=== PATIENT | female | born 1990 | race Caucasian/White ===

== ENCOUNTER 2018-07-09 13:55 | Emergency (ER) | payer SELFPAY ==
[2018-07-09] MEDS ORDERED: PARO-243 PO (14:00)
[2018-07-09 14:01] VITALS: BP 117/84
--- NOTE | 2018-07-09 14:04 | ER Report ---
History and Physical Time Seen By MD: 14:04 Hx. of Stated Complaint: CLosed R thumb in van. Small lacerations to anterior and dorsal sides of thenar prominence, bleeding controlled. Swelling to thenar prominence. PMS intact distal. HPI/ROS CHIEF COMPLAINT: Crush injury to right thumb, laceration HISTORY OF PRESENT ILLNESS: 27-year-old female patient presents to emergency room with complaint of crush injury to right thumb and laceration. Patient states that she was closing the band or and cut her thumb in the door. Patient states she does have some pain to the thumb. She states she has not taken any medication for this. She denies any fevers or chills. She denies having any numbness or tingling to her thumb. Patient did apply pressure prior to coming to the emergency room. She states she is up-to-date on her tetanus shot. Allergies: Coded Allergies: No Known Drug Allergies (Unverified , 07/09/18) Home Meds Reported Medications Paroxetine Hcl (PAXIL) 20 Mg Tablet, 20 MG PO QDAY, TAB 07/09/18 Past Medical/Surgical History Patient denies any pertinent medical or surgical history. Reviewed Nurses Notes: Yes Constitutional Vital Sign - Last 24 Hours 07/09/18 14:01 Temp 98.5 Pulse 82 Resp 16 B/P (MAP) 117/84 Pulse Ox 95 O2 Delivery Room Air Physical Exam General appearance: Alert no distress. Respiratory: Chest is non tender, lungs are clear to auscultation. Cardiac: Regular rate and rhythm. Skin: Patient has a 0.5cm laceration to the dorsal aspect of the right thumb, she does have a small abrasion to the palmar aspect of the right thumb. DIFFERENTIAL DIAGNOSIS: After history and physical exam differential diagnosis was considered for laceration, fracture, contusion. Medical Decision Making EKG/Imaging Imaging INDICATION: smashed finger in car door. DATE: 07/09/2018 2:58 PM. TECHNIQUE: FINGER RIGHT THUMB COMPARISON: None FINDINGS: Normal alignment. No fracture or dislocation. No erosions or significant degenerative findings. IMPRESSION: No acute osseous abnormality. Report Dictated By: Eugenia Bennett MD at 07/09/2018 2:58 PM Report E-Signed By: Eugenia Bennett MD at 07/09/2018 3:00 PM ED Course/Re-evaluation ED Course Patient is admitted and examined, history and physical were obtained. Differential diagnoses were considered. On examination lungs are clear, heart is regular. Patient does have a 0.5 cm laceration to the dorsal aspect of the right thumb. There was anesthetized, cleaned and repaired as described below. Patient also had an abrasion to the palmar aspect of the right thumb. The excess skin was removed. The area was cleaned up and covered with a Band-Aid. X-rays of the right thumb were done which were negative for any fractures. I discussed results with patient and her family. We will go ahead and discharge him home at this time. They're to follow-up with their primary care provider in 7-10 days to have sutures removed. Patient verbalized understanding and agreement with plan. Procedure: Laceration repair. Verbal consent was obtained from the patient. The 0.5 cm laceration on the dorsal aspect of the right thumb was anesthetized in the usual fashion. The wound was scrubbed, draped and explored to its base with a gloved finger. There were no deep structures involved. No tendon injury was identified. The wound was repaired with 2 simple interrupted sutures using 5-0 Prolene material. The wound repair was simple. The procedure was performed by myself. Decision to Disposition Date: Jul 09, 2018 Decision to Disposition Time: 14:56 Depart Departure Latest Vital Signs Vital Signs Date Time Temp Pulse Resp B/P (MAP) Pulse Ox O2 Delivery O2 Flow Rate FiO2 07/09/18 14:01 98.5 82 16 117/84 95 Room Air Impression: Primary Impression: Finger laceration Additional Impression: Crushing injury of right thumb Condition: Improved Disposition: HOME OR SELF-CARE Patient Instructions: Finger Laceration (ED) Additional Instructions: Keep wound dry for 48 hours. Follow up with your primary care provider in the next 7-10 days to have sutures removed. Monitor for signs of infection; redness, swelling, heat, discharge, increasing pain or red streaking. Take Tylenol or Ibuprofen as needed for pain. Return to the ER with any concerns. You may change dressing as needed. Problem Qualifiers Primary Impression: Finger laceration Encounter type: initial encounter Finger: thumb Damage to nail status: without damage Foreign body presence: without foreign body Laterality: right Qualified Codes: S61.011A - Laceration without foreign body of right thumb without damage to nail, initial encounter Additional Impression: Crushing injury of right thumb Encounter type: initial encounter Qualified Codes: S67.01XA - Crushing injury of right thumb, initial encounter MER MILLER Jul 09, 2018 14:04
[2018-07-09] MEDS ORDERED: DIPHTH/TETANUS/ACEL. PERTUSSIS IM ONLY ONE (14:10)
--- NOTE | 2018-07-09 15:04 | RADIOLOGY IMAGING REPORT ---
FACILITY: [facility] [place] PATIENT NAME: Eugenie Serrano : 1990 MR: [id number] V: [id number] EXAM DATE: ORDERING PHYSICIAN: MER MILLER TECHNOLOGIST: Location: [facility] Patient: Eugenie Serrano : 1990 Visit/Account:[id number] Date of Sevice: 07/09/2018 INDICATION: smashed finger in car door. DATE: 07/09/2018 2:58 PM. TECHNIQUE: FINGER RIGHT THUMB COMPARISON: None FINDINGS: Normal alignment. No fracture or dislocation. No erosions or significant degenerative fin dings. IMPRESSION: No acute osseous abnormality. Report Dictated By: Eugenia Bennett MD at 07/09/2018 2:58 PM Report E-Signed By: Eugenia Bennett MD at 07/09/2018 3:00 PM WSN:[id number]
== END 2018-07-09 15:19 | disposition home or self-care (01) ==
LOC: ER 14:11
DX: S61.011A Laceration without foreign body of right thumb without damage to nail, initial encounter (principal); S67.01XA Crushing injury of right thumb, initial encounter
CPT/HCPCS: 99283